=== PATIENT | male | born 1950 | race Caucasian/White ===

== ENCOUNTER 2019-09-07 05:31 | Inpatient (IN) | payer MEDICARE, OTHER ==
[2019-08-30 15:49] LABS: BASOPHILS # (AUTO) 0.1 X10'3 (0-0.2); BASOPHILS % (AUTO) 0.5 % (0-1); EOSINOPHILS # (AUTO) 0.3 X10'3 (0-0.9); LYMPHOCYTES # (AUTO) 4.1 X10'3 (1.1-4.8); MONOCYTES # (AUTO) 1.2 X10'3 (0-0.9)
[2019-08-30 15:50] LABS: EOSINOPHILS % (AUTO) 2.8 % (0-6); LYMPHOCYTES % (AUTO) 32.8 % (21-51); MEAN CORPUSCULAR HEMOGLOBIN 34.4 PG (27.0-31.0); MEAN CORPUSCULAR HGB CONC 34.7 g/dL (33.0-36.5); MEAN CORPUSCULAR VOLUME 98.9 FL (78-98); MEAN PLATELET VOLUME 9.8 FL (7.4-10.4); MONOCYTES % (AUTO) 9.7 % (2-12); NEUTROPHILS # (AUTO) 6.7 X10'3 (1.8-7.7); NEUTROPHILS % (AUTO) 54.2 % (42-75); PRE OP HEMATOCRIT 43.3 % (42.0-52.0); PRE OP PLATELET COUNT 185 X10'3 (140-440); RED BLOOD COUNT 4.38 X10'6 (4.70-6.10); RED CELL DISTRIBUTION WIDTH 13.5 % (11.5-14.5)
[2019-08-30 15:51] LABS: PRE OP PROTIME 10.6 SECONDS (9.0-12.0)
[2019-08-30 16:04] LABS: ALBUMIN 3.8 G/DL (3.4-5.0); ALBUMIN/GLOBULIN RATIO 1.2 (1.1-1.5); ALKALINE PHOSPHATASE 113 IU/L (46-116); BLOOD UREA NITROGEN 15 MG/DL (7-18); BUN/CREATININE RATIO 16.3 (5.4-32.0); CHLORIDE 107 MMOL/L (99-107); CREATININE 0.92 MG/DL (0.60-1.10); PRE OP ALT 29 U/L (30-65); PRE OP ANION GAP 9 (8-16); PRE OP AST 19 U/L (10-37); PRE OP BILIRUB, TOTAL 0.3 MG/DL (0.0-1.0); PRE OP GLUCOSE 130 MG/DL (70-104); PRE OP POTASSIUM 3.8 MMOL/L (3.4-5.1); PRE OP SODIUM 143 MMOL/L (135-145); TOTAL CARBON DIOXIDE 27.1 MMOL/L (24-32); eGFR 81 ML/MIN
[2019-09-07] VITALS (11 sets, daily range): BP systolic 58–147; BP diastolic 54–90
[~2019-09-07] VITALS: Ht 167.6 cm; Wt 92.1 kg
[~2019-09-07 05:31] MED LIST: ASPI81TA52 PO; DILT240C47 PO; LEVO125T8 PO; LISI40TA4 PO; PANT40TA4 PO; SIMV-45 PO; TEST75GE TD; cefazolin/dext.iso 2gm/100ml 100 ML IV ONE; famotidine 20mg tablet PO ONE; ringers solution, lacted 1,000 ML IV SCH; tranexamic acid inj. 1,000 MG in normal saline 100 ML IV ONE; vancomycin inj 1,500 MG in normal saline 300ml IV soln IV ONE
[2019-09-07] MEDS ORDERED: LIDOcaine 1% (10mg/ml) 2ml vial ONE (06:06)
[2019-09-07] MEDS ORDERED: ceFAZolin 1000mg inj ONE (06:46)
[2019-09-07] MEDS ORDERED: sevoflurane 250ml liquid IH ONE (07:20)
[2019-09-07] MEDS ORDERED: tetracaine 1% (10mg/ml) pres. free inj. ONE (07:22)
[2019-09-07] MEDS ORDERED: MIDAZolam 5mg/5ml vial ONE (07:24)
[2019-09-07] MEDS ORDERED: fentaNYL/PF 50MCG/1 ML 2ML syringe ONE (07:24)
[2019-09-07] MEDS ORDERED: ringers solution, lacted 1,000 ML IV SCH (08:08)
[2019-09-07] MEDS ORDERED: morphine 4 MG/ML inj SYRINge IV PRN (08:10)
[2019-09-07] MEDS ORDERED: HYDROmorphone inj. 0.5 MG/0.5 ML DISP.SYRIN IV PRN ×2 (08:10→10:15)
[2019-09-07] MEDS ORDERED: ondansetron/PF 4mg/2ml inj IV PRN ×2 (08:10→10:15)
[2019-09-07] MEDS ORDERED: ROPIVAcaine 0.5% (5mg/ml) 30ml vial ONE (09:25)
[2019-09-07] MEDS ORDERED: LIDOcaine 1%/PF 5ML 10 MG/ML VIAL ONE (09:25)
[2019-09-07] MEDS ORDERED: propofol inj 20 ML IV ONE (09:25)
[2019-09-07] MEDS ORDERED: ondansetron/PF 4mg/2ml inj ONE (09:25)
[2019-09-07] MEDS ORDERED: dexamethasone sod phosphate 4mg/ml inj. ONE (09:25)
--- NOTE | 2019-09-07 10:07 | NUR ---
Received from OR via ORTHO BED WITH ORANGELICA , accompanied by Anesthesiologist KRISTY and report given by Anesthesiolgist. PATIENT WITH VSS. DENIES PAIN. T7 SPINAL SENSATION LEVEL AT THIS TIME. + DP ON RIGHT FOOT. KNEE WRAP, POWDER PACK. AMARILIS DRAIN. ONQ PAIN BLOCK CATHETER, ALLEN CATHETER. 18G PIV IN LEFT UE RUNNING LR AT 100. SCDS DONNED IN RR. Addendum: 09/07/19 at 1044 by Yovanny Baker RN RN Amended: Links added.
[2019-09-07] MEDS ORDERED: HYDROcodone/acetaminophen 10/325mg tab PO PRN (10:15)
[2019-09-07] MEDS ORDERED: magnesium hydroxide 30ml (MOM) UD suspension PO PRN (10:15)
[2019-09-07] MEDS ORDERED: bisacodyl 10mg suppository rectal RC PRN (10:15)
[2019-09-07] MEDS ORDERED: diphenhydrAMINE 25mg capsule PO PRN ×2 (10:15)
[2019-09-07] MEDS ORDERED: acetaminophen 325mg tablet PO PRN (10:15)
[2019-09-07] MEDS: ROPIVAcaine 0.2%/PF PUMP/bolus 550 ML ADDCANAL SCH (10:53)
--- NOTE | 2019-09-07 11:07 | NUR ---
ALL CRITERIA FOR TRANSFER TO THE FLOOR HAS BEEN ACHIEVED. VSS. BED LOW, CALL LIGHT AND VS. SET IN PLACE. RN PRESENT TO ACCEPT CARE. PATIENT RESTING COMFORTABLY IN BED. BELONGINGS SENT WITH PATIENT. DRESSINGS CDI. JESSE HIGGINS PRESENT TO ACCEPT CARE. VSS. DENIES PAIN. SENSATION LEVEL AT T10-11 AT THIS TIME FROM SPINAL ANESTHESIA. KNEE DRESSING IS CDI, ON Q IN PLACE. Addendum: 09/07/19 at 1135 by Yovanny Tian - JESSE MOLINA Amended: Links added.
--- NOTE | 2019-09-07 11:10 | NUR ---
Patient in room ORTHO 4024B. I have received report from ALIREZA RODRIGUEZ RN and had the opportunity to ask questions and assume patient care.
[2019-09-07] MEDS: HYDROcodone/acetaminophen 10/325mg tab PO PRN ×3 (12:33→23:20)
[2019-09-07] MEDS: ketorolac tromethamine 15mg/ml inj. IV SCH ×2 (15:26→20:56)
[2019-09-07] MEDS: ceFAZolin 1GM/D5W- ADD-VANTAGE 50 ML IV SCH ×2 (16:34→23:20)
[2019-09-07] MEDS ORDERED: aspirin 325mg tablet PO SCH (17:30)
--- NOTE | 2019-09-07 18:00 | NUR ---
PT POST OP VITAL MACHINE MALFUNCTIONED. DID NOT COMPLETE ALL VITALS. PT DOING WELL, NO COMPLICATIONS.
--- NOTE | 2019-09-07 19:00 | NUR ---
Patient in room ORTHO 4024. I have received report from Dilma MOLINA and had the opportunity to ask questions and assume patient care.
[2019-09-07] MEDS: potassium Cl 20mEq in NS 1,000 ML IV SCH (19:23)
[2019-09-07] MEDS ORDERED: vancomycin/NS 1 GM ADD-VANTAGE 250 ML IV SCH (20:00)
[2019-09-07] MEDS: sennosides 8.6mg tablet PO SCH (20:52)
[2019-09-07] MEDS: lisinopril 10 MG tablet PO SCH (20:53)
[2019-09-07] MEDS: aspirin 81mg tab.chew PO SCH (20:55)
[2019-09-08] MEDS: potassium Cl 20mEq in NS 1,000 ML IV SCH ×2 (00:13→12:19)
[2019-09-08 02:00] VITALS: BP 116/62
[2019-09-08] MEDS: ketorolac tromethamine 15mg/ml inj. IV SCH ×2 (02:59→07:45)
[2019-09-08] MEDS: HYDROcodone/acetaminophen 10/325mg tab PO PRN ×4 (05:43→23:34)
--- NOTE | 2019-09-08 06:05 | NUR ---
Patient in room ORTHO 4024. I have received report from RICK MOLINA and had the opportunity to ask questions and assume patient care.
[2019-09-08 06:36] LABS: BASOPHILS # (AUTO) 0.1 X10'3 (0-0.2); BASOPHILS % (AUTO) 0.3 % (0-1); EOSINOPHILS % (AUTO) 0 % (0-6); HEMATOCRIT 32.8 % (42.0-52.0); HEMOGLOBIN 11.2 g/dl (14.0-17.9); LYMPHOCYTES # (AUTO) 2.2 X10'3 (1.1-4.8); LYMPHOCYTES % (AUTO) 12.8 % (21-51); MEAN CORPUSCULAR HEMOGLOBIN 34.3 PG (27.0-31.0); MEAN CORPUSCULAR HGB CONC 34.2 g/dL (33.0-36.5); MEAN CORPUSCULAR VOLUME 100.2 FL (78-98); MEAN PLATELET VOLUME 9.2 FL (7.4-10.4); MONOCYTES # (AUTO) 1.7 X10'3 (0-0.9); MONOCYTES % (AUTO) 9.9 % (2-12); NEUTROPHILS # (AUTO) 13.3 X10'3 (1.8-7.7); PLATELET COUNT 163 X10'3 (140-440); RED BLOOD COUNT 3.28 X10'6 (4.70-6.10); RED CELL DISTRIBUTION WIDTH 13.4 % (11.5-14.5); WHITE BLOOD COUNT 17.3 X10'3 (4.5-11.0)
[2019-09-08 07:06] LABS: ALANINE AMINOTRANSFERASE 25 U/L (12-78); ALBUMIN 2.7 G/DL (3.4-5.0); ALBUMIN/GLOBULIN RATIO 1.1 (1.1-1.5); ALKALINE PHOSPHATASE 80 IU/L (46-116); ANION GAP 5 (8-16); ASPARTATE AMINO TRANSFERASE 13 U/L (10-37); BILIRUBIN,TOTAL 0.3 MG/DL (0.1-1.0); BLOOD UREA NITROGEN 15 MG/DL (7-18); BUN/CREATININE RATIO 16.3 (5.4-32.0); CALCIUM 7.3 MG/DL (8.5-10.1); CHLORIDE 108 MMOL/L (99-107); CREATININE 0.92 MG/DL (0.60-1.10); GLUCOSE 144 MG/DL (70-104); SODIUM 140 MMOL/L (135-145); TOTAL CARBON DIOXIDE 27.1 MMOL/L (24-32); TOTAL PROTEIN 5.2 G/DL (6.4-8.2); eGFR 81 ML/MIN
[2019-09-08] MEDS: aspirin 81mg tab.chew PO SCH ×2 (07:45→17:31)
[2019-09-08] MEDS: pantoprazole 40mg Tablet.DR PO SCH (07:45)
[2019-09-08] MEDS: diltiazem CD 120mg capsule (once-daily) PO SCH (07:45)
[2019-09-08] MEDS: levoTHYROXINE 125mcg tablet PO SCH (07:45)
[2019-09-08 10:00] VITALS: BP 139/69
--- NOTE | 2019-09-08 16:22 | NUR ---
Consult: Pt s/p left knee arthroplasty. Pt had one bout of emesis today, pt is receiving zofran PRN. RD and policy intern visited pt at bedside, provided written and verbal high protein education with RD contact information. Pt eating fair with PO intake avg 50% most meals. Pt agrees to Vanilla Ensure High Protein TIDWM, notified MD. Discussed preferences with pt, pt does not want string beans or coffee on tray, d/w dietary. Will continue to follow. Addendum: 09/08/19 at 1623 by Wing Edwin HARRIS Amended: Links added.
[2019-09-08 18:00] VITALS: BP 140/73
[2019-09-08] MEDS: lactose-reduced food (Ensure High Protein) 237ml bottle PO SCH (18:00)
--- NOTE | 2019-09-08 18:20 | NUR ---
Problems reprioritized. Patient report given, questions answered & plan of care reviewed with JENNIFER MOLINA.
[2019-09-08] MEDS: ROPIVAcaine 0.2%/PF PUMP/bolus 550 ML ADDCANAL SCH (18:45)
[2019-09-08 22:00] VITALS: BP 140/68
[2019-09-08] MEDS: sennosides 8.6mg tablet PO SCH (22:05)
[2019-09-08] MEDS: lisinopril 10 MG tablet PO SCH (22:10)
[2019-09-09] MEDS: potassium Cl 20mEq in NS 1,000 ML IV SCH (02:11)
[2019-09-09] MEDS: HYDROcodone/acetaminophen 10/325mg tab PO PRN ×3 (05:07→13:59)
[2019-09-09 06:00] VITALS: BP 141/77
--- NOTE | 2019-09-09 06:20 | NUR ---
Patient in room ORTHO 4024. I have received report from RICK MOLINA and had the opportunity to ask questions and assume patient care.
--- NOTE | 2019-09-09 06:37 | NUR ---
ON-Q MTURNED DOWN TO 12ML/HR.
[2019-09-09] MEDS: ROPIVAcaine 0.2% (10 MG/5 ML) BOLUS INJECTION ADDCANAL PRN ×5 (06:38→16:23)
[2019-09-09 06:39] LABS: BASOPHILS # (AUTO) 0.1 X10'3 (0-0.2); BASOPHILS % (AUTO) 0.4 % (0-1); EOSINOPHILS # (AUTO) 0.3 X10'3 (0-0.9); EOSINOPHILS % (AUTO) 1.8 % (0-6); HEMATOCRIT 31.2 % (42.0-52.0); HEMOGLOBIN 10.8 g/dl (14.0-17.9); LYMPHOCYTES # (AUTO) 4.5 X10'3 (1.1-4.8); LYMPHOCYTES % (AUTO) 29.4 % (21-51); MEAN CORPUSCULAR HEMOGLOBIN 34.3 PG (27.0-31.0); MEAN CORPUSCULAR HGB CONC 34.5 g/dL (33.0-36.5); MEAN CORPUSCULAR VOLUME 99.5 FL (78-98); MEAN PLATELET VOLUME 9.7 FL (7.4-10.4); MONOCYTES % (AUTO) 13.4 % (2-12); NEUTROPHILS # (AUTO) 8.3 X10'3 (1.8-7.7); PLATELET COUNT 161 X10'3 (140-440); RED BLOOD COUNT 3.14 X10'6 (4.70-6.10); WHITE BLOOD COUNT 15.2 X10'3 (4.5-11.0)
[2019-09-09 07:02] LABS: ALANINE AMINOTRANSFERASE 20 U/L (12-78); ALBUMIN 2.6 G/DL (3.4-5.0); ALBUMIN/GLOBULIN RATIO 0.9 (1.1-1.5); ALKALINE PHOSPHATASE 66 IU/L (46-116); ANION GAP 7 (8-16); ASPARTATE AMINO TRANSFERASE 12 U/L (10-37); BILIRUBIN,TOTAL 0.4 MG/DL (0.1-1.0); BLOOD UREA NITROGEN 11 MG/DL (7-18); BUN/CREATININE RATIO 13.8 (5.4-32.0); CALCIUM 7.9 MG/DL (8.5-10.1); CHLORIDE 107 MMOL/L (99-107); GLUCOSE 101 MG/DL (70-104); POTASSIUM 4.2 MMOL/L (3.5-5.1); SODIUM 142 MMOL/L (135-145); TOTAL CARBON DIOXIDE 27.6 MMOL/L (24-32); TOTAL PROTEIN 5.5 G/DL (6.4-8.2); eGFR > 90 ML/MIN
[2019-09-09] MEDS: aspirin 81mg tab.chew PO SCH ×2 (07:10→17:40)
[2019-09-09] MEDS: levoTHYROXINE 125mcg tablet PO SCH (07:10)
[2019-09-09] MEDS: pantoprazole 40mg Tablet.DR PO SCH (07:10)
[2019-09-09] MEDS: diltiazem CD 120mg capsule (once-daily) PO SCH (07:10)
--- NOTE | 2019-09-09 07:31 | NUR ---
ON-Q UP TO 14ML/HR
[2019-09-09] MEDS: lactose-reduced food (Ensure High Protein) 237ml bottle PO SCH ×3 (08:00→18:00)
[2019-09-09 10:00] VITALS: BP 134/66
[2019-09-09] MEDS ORDERED: oxyCODONE/APAP 10/325mg tablet PO PRN (14:30)
[2019-09-09] MEDS: ketorolac trometh. 30mg/ml inj. IV SCH ×2 (15:25→20:25)
[2019-09-09] MEDS: oxyCODONE/APAP 10/325mg tablet PO PRN (17:40)
[2019-09-09 18:00] VITALS: BP 127/66
--- NOTE | 2019-09-09 18:10 | NUR ---
Patient in room ORTHO 4024. I have received report from RICK MOLINA and had the opportunity to ask questions and assume patient care.
[2019-09-09] MEDS: lisinopril 10 MG tablet PO SCH (20:28)
[2019-09-09] MEDS: sennosides 8.6mg tablet PO SCH (20:29)
[2019-09-09 22:00] VITALS: BP 129/64
[2019-09-10] MEDS: ROPIVAcaine 0.2%/PF PUMP/bolus 550 ML ADDCANAL SCH (02:25)
[2019-09-10] MEDS: ketorolac trometh. 30mg/ml inj. IV SCH ×2 (02:28→09:33)
[2019-09-10] MEDS: oxyCODONE/APAP 10/325mg tablet PO PRN (05:25)
[2019-09-10 06:00] VITALS: BP 140/76
[2019-09-10 07:13] LABS: BASOPHILS # (AUTO) 0.1 X10'3 (0-0.2); BASOPHILS % (AUTO) 0.6 % (0-1); EOSINOPHILS # (AUTO) 0.3 X10'3 (0-0.9); EOSINOPHILS % (AUTO) 2.7 % (0-6); HEMATOCRIT 32.9 % (42.0-52.0); HEMOGLOBIN 11.3 g/dl (14.0-17.9); LYMPHOCYTES # (AUTO) 3.4 X10'3 (1.1-4.8); LYMPHOCYTES % (AUTO) 26.3 % (21-51); MEAN CORPUSCULAR HEMOGLOBIN 34.4 PG (27.0-31.0); MEAN CORPUSCULAR HGB CONC 34.3 g/dL (33.0-36.5); MEAN CORPUSCULAR VOLUME 100.2 FL (78-98); MEAN PLATELET VOLUME 9.4 FL (7.4-10.4); MONOCYTES # (AUTO) 1.6 X10'3 (0-0.9); MONOCYTES % (AUTO) 12.7 % (2-12); NEUTROPHILS # (AUTO) 7.4 X10'3 (1.8-7.7); NEUTROPHILS % (AUTO) 57.7 % (42-75); PLATELET COUNT 178 X10'3 (140-440); RED BLOOD COUNT 3.28 X10'6 (4.70-6.10); RED CELL DISTRIBUTION WIDTH 13.5 % (11.5-14.5); WHITE BLOOD COUNT 12.8 X10'3 (4.5-11.0)
[2019-09-10 07:37] LABS: ALANINE AMINOTRANSFERASE 22 U/L (12-78); ALBUMIN 2.6 G/DL (3.4-5.0); ALBUMIN/GLOBULIN RATIO 0.8 (1.1-1.5); ALKALINE PHOSPHATASE 69 IU/L (46-116); ANION GAP 8 (8-16); ASPARTATE AMINO TRANSFERASE 18 U/L (10-37); BILIRUBIN,TOTAL 0.5 MG/DL (0.1-1.0); BLOOD UREA NITROGEN 9 MG/DL (7-18); BUN/CREATININE RATIO 10.7 (5.4-32.0); CALCIUM 8.3 MG/DL (8.5-10.1); CHLORIDE 105 MMOL/L (99-107); CREATININE 0.84 MG/DL (0.60-1.10); GLUCOSE 112 MG/DL (70-104); POTASSIUM 3.9 MMOL/L (3.5-5.1); SODIUM 141 MMOL/L (135-145); TOTAL CARBON DIOXIDE 28.4 MMOL/L (24-32); TOTAL PROTEIN 5.9 G/DL (6.4-8.2); eGFR 90 ML/MIN
[2019-09-10] MEDS: lactose-reduced food (Ensure High Protein) 237ml bottle PO SCH (08:00)
[2019-09-10] MEDS: aspirin 81mg tab.chew PO SCH (09:32)
[2019-09-10] MEDS: diltiazem CD 120mg capsule (once-daily) PO SCH (09:37)
[2019-09-10] MEDS: pantoprazole 40mg Tablet.DR PO SCH (09:37)
[2019-09-10] MEDS: levoTHYROXINE 125mcg tablet PO SCH (09:37)
[2019-09-10 10:00] VITALS: BP 154/84
--- NOTE | 2019-09-10 14:45 | NUR ---
Dr. Mendieta here to see pt. Pt ready to discharge today. Dr. Mendieta wrote RX for Percocet. Copy of RX made and given to pt. Saline lock dc'd LFA. Instructions regarding Ropivicaine and AMARILIS drain given to pt. Reviewed discharge orders. Pt transported to private vehicle via wheelchair to home.
== END 2019-09-10 14:45 | disposition home or self-care (01) | DRG 470 ==
LOC: PAS IN 05:31 → EDSTATUS 07:30 → ORTHO 4S 11:15
PROVIDERS: ADMIT Orthopaedic Surgery; ATTEND Orthopaedic Surgery
PROC: 3E0T3BZ Introduction of Anesthetic Agent into Peripheral Nerves and Plexi, Percutaneous Approach (ICD-10-PCS; 2019-09-07)
PROC: 0SRD0J9 Replacement of Left Knee Joint with Synthetic Substitute, Cemented, Open Approach (ICD-10-PCS; principal; 2019-09-07 07:20)
DX: M17.12 Unilateral primary osteoarthritis, left knee (principal); D62 Acute posthemorrhagic anemia; E03.9 Hypothyroidism, unspecified; I10 Essential (primary) hypertension; Z96.652 Presence of left artificial knee joint; Z79.899 Other long term (current) drug therapy; K21.9 Gastro-esophageal reflux disease without esophagitis
CPT/HCPCS: 36415; 80053; 82948; 84443; 85025; 85610; 85730; 86885; 86900; 86901; 86920; 87081; 93005; 97110; 97116; 97161; 97530; A4215; A4618; A6455; A7000; C1713; C1758; C1776; G0378; J0690; J1100; J1885; J2001; J2250; J2405; J2704; J2795; J3010; J3370; J3480; J7120